=== PATIENT | male | born 1975 | race Caucasian/White ===

== ENCOUNTER 2018-06-14 23:18 | Emergency (ER) | payer MEDICAID ==
[~2018-06-14] VITALS: Ht 182.9 cm; Wt 98.4 kg
[2018-06-14 23:20] VITALS: BP 107/63
[2018-06-14] MEDS ORDERED: CYCLOBENZAPRINE 10 MG TAB PO ONE (23:35)
[2018-06-14] MEDS ORDERED: KETOROLAC 30 MG/ML VIAL IM ONE (23:35)
[2018-06-15 00:44] VITALS: BP 107/63
== END 2018-06-15 00:44 | disposition home or self-care (01) ==
LOC: MED 23:18
DX: M54.5 Low back pain (principal); M54.6 Pain in thoracic spine; M54.2 Cervicalgia; V44.5XXA Car driver injured in collision with heavy transport vehicle or bus in traffic accident, initial encounter; Y93.I9 Activity, other involving external motion; Y92.488 Other paved roadways as the place of occurrence of the external cause; Y99.8 Other external cause status; Z88.8 Allergy status to other drugs, medicaments and biological substances
CPT/HCPCS: 72072; 72110; 96372; 99284; J1885

== ENCOUNTER 2018-12-05 09:33 | Emergency (ER) | payer MEDICAID, OTHER ==
[~2018-12-05] VITALS: Ht 182.9 cm; Wt 99.8 kg
[2018-12-05 09:43] VITALS: BP 106/63
--- NOTE | 2018-12-05 09:48 | NUR ---
PATIENT AMBULATED TO BED #12
--- NOTE | 2018-12-05 10:11 | NUR ---
PT C/O PAIN 5/10 IN PENIS FOR ABOUT 6 WEEKS. BLOOD IN SEMEN CONTINUING TO INCREASE LAST 6 WEEKS. VS STABLE. NO S/S OF DISTRESS. SIDE RAIL UP. A&O X4. WILL CONTINUE TO MONITOR.
[2018-12-05 10:17] LABS: APPEARANCE,URINE CLEAR (CLEAR); BILIRUBIN,URINE NEGATIVE (NEGATIVE); BLOOD, URINE NEGATIVE (NEGATIVE); COLOR,URINE YELLOW (YELLOW); LEUKOCYTE ESTERASE ,URINE NEGATIVE (NEGATIVE); NITRITE, URINE NEGATIVE (NEGATIVE); UGLUCOSE NEGATIVE (NEGATIVE)
[2018-12-05 10:32] LABS: RBC,URINE 0-5 /HPF (0-5); WBC,URINE 0-5 /HPF (0-5)
[2018-12-05 13:06] VITALS: BP 109/61
--- NOTE | 2018-12-05 13:07 | NUR ---
Patient discharged with v/s stable. Written and verbal after care instructions given and explained. Patient verbalized understanding. Ambulatory with steady gait. All questions addressed prior to discharge. Advised to follow up with PMD.
[2018-12-07 06:36] LABS: CHLAMYDIA TRACHOMATIS AMP DNA Negative (Negative)
== END 2018-12-05 13:07 | disposition home or self-care (01) ==
LOC: MED 09:33
DX: R36.1 Hematospermia (principal); Z88.5 Allergy status to narcotic agent; Z85.47 Personal history of malignant neoplasm of testis
CPT/HCPCS: 36415; 76870; 81001; 87491; 99284; Q0092; 81002

== ENCOUNTER 2019-06-26 00:40 | Emergency (ER) | payer MEDICAID, OTHER ==
[~2019-06-26] VITALS: Ht 182.9 cm; Wt 97.1 kg
[2019-06-26 00:42] VITALS: BP 131/89
--- NOTE | 2019-06-26 00:45 | NUR ---
PT TAKEN TO BED 11
--- NOTE | 2019-06-26 00:53 | NUR ---
PT BIB SELF C/O ABD PAIN X6HRS. CONSTANT SHARP 10/10 PAIN TO ABD. ABD SOFT, ROUND, TENDER. PT STATES HE FEELS BLOATED. STATES NAUSEA & VOMITING. DENIES DIARRHEA AND FEVER. PT STATES CHILLS X6 HRS. LAST BM X2 DAYS AGO PER PT. RR EVEN AND UNLABORED. PT CALM AND PLEASANT IN BED. BED LOCKED AND IN LOW POSITION. VSS. MEDHX: TESTICULAR LYMPHOMA ALLERGIES: MORPHINE
--- NOTE | 2019-06-26 01:08 | NUR ---
PT AMBULATED TO RESTROOM WITH STEADY GAIT.
--- NOTE | 2019-06-26 01:13 | NUR ---
Dr. Berumen examining patient.
[2019-06-26] MEDS ORDERED: KETOROLAC 30 MG/ML VIAL IVP ONE (01:15)
[2019-06-26] MEDS ORDERED: ONDANSETRON 4 MG/2 ML VIAL IVP ONE (01:15)
[2019-06-26] MEDS ORDERED: NACL 0.9% 1,000 ML IV ONE (01:15)
--- NOTE | 2019-06-26 01:25 | NUR ---
LAB AT BEDSIDE.
[2019-06-26 01:32] LABS: EOSINOPHILS # (AUTO) 0.1 K/uL (0-0.4); LYMPHOCYTES # (AUTO) 1.1 K/uL (2.0-11.5); MONOCYTES # (AUTO) 0.9 K/uL (0.8-1.0); PLATELET COUNT (AUTO) 187 K/uL (140-450); RED CELL DISTRIBUTION WIDTH 13.3 % (11.6-13.7)
[2019-06-26 01:38] LABS: BASOPHILS % (AUTO) 0.1 % (0.0-2.0); EOSINOPHILS % (AUTO) 0.7 % (0.0-4.0); HEMATOCRIT 48.4 % (36-52); MEAN CORPUSCULAR HEMOGLOBIN 29 pg (27-31); MEAN CORPUSCULAR HGB CONC 33 g/dL (33-37); MEAN CORPUSCULAR VOLUME 88.3 fL (80-94); MONOCYTES % (AUTO) 5.6 % (1.7-9.3); NEUTROPHILS # (AUTO) 13.7 K/uL (1.8-7.7); NEUTROPHILS % (AUTO) 86.6 % (42.2-75.2); RED BLOOD CELL COUNT(AUTO) 5.48 MIL/uL (4.20-6.10); WHITE BLOOD COUNT (AUTO) 15.9 K/uL (4.8-10.8)
--- NOTE | 2019-06-26 01:48 | NUR ---
PT TO CT VIA WHEELCHAIR.
[2019-06-26 01:59] LABS: ANION GAP 13.6 (8-16); CARBON DIOXIDE 29.3 mmol/L (21-32); POTASSIUM 3.9 mmol/L (3.5-5.1); TOTAL BILIRUBIN 0.7 mg/dL (0.0-1.0)
[2019-06-26 02:00] LABS: ALBUMIN 4.4 g/dL (3.4-5.0)
--- NOTE | 2019-06-26 02:00 | NUR ---
PT RETURN FROM CT
--- NOTE | 2019-06-26 02:02 | NUR ---
PT STATES 8/10 SHARP ABD PAIN S/P TORADOL IV PUSH. DR SONI MADE AWARE. PT RESTING IN BED W/ BED LOCKED AND IN LOW POSITION. VSS. WILL CONTINUE TO MONITOR.
[2019-06-26] MEDS ORDERED: fentaNYL 0.05 MG/ML VIAL IVP ONE (02:05)
--- NOTE | 2019-06-26 02:19 | NUR ---
PT STATES RELIEF OF PAIN AFTER FENTANYL IV PUSH. 2/10 PAIN AT THIS TIME. BED LOCKED AND IN LOW POSITION, X1 SIDERAIL RAISED. VSS. WILL CONTINUE TO MONITOR.
--- NOTE | 2019-06-26 02:27 | NUR ---
PT O2 SAT 91% ON RA. PT PLACED ON 2L NC AT THIS TIME, O2 SAT 98%. VSS. WILL CONTINUE TO MONITOR.
[2019-06-26 03:52] VITALS: BP 122/76
--- NOTE | 2019-06-26 03:53 | NUR ---
Patient discharged with v/s stable. Written and verbal after care instructions given and explained. Patient alert, oriented and verbalized understanding of instructions. Ambulatory with . All questions addressed prior to discharge. ID band removed. Patient advised to follow up with PMD. Rx of ZOFRAN, NORCO, AND BENTYL given. Patient educated on indication of medication including possible reaction and side effects. Opportunity to ask questions provided and answered. PT STATES HE HAS A RIDE HOME.
== END 2019-06-26 03:53 | disposition home or self-care (01) ==
LOC: MED 00:40
DX: K56.0 Paralytic ileus (principal); R11.2 Nausea with vomiting, unspecified; Z88.5 Allergy status to narcotic agent; Z85.9 Personal history of malignant neoplasm, unspecified
CPT/HCPCS: 36415; 74176; 80053; 83690; 85025; 96361; 96374; 96375; 99284; J1885; J2405; J3010; J7030

== ENCOUNTER 2023-10-13 12:32 | Emergency (ER) | payer MEDICAID, OTHER ==
[~2023-10-13] VITALS: Ht 182.9 cm; Wt 104.3 kg
[2023-10-13 13:09] VITALS: BP 132/83; PULSE 62; RESP 16; TEMP 97.5; O2SAT 97
[2023-10-13 13:28] LABS: BASOPHILS % (AUTO) 0.3 % (0.0-2.0); EOSINOPHILS % (AUTO) 0.3 % (0.0-4.0); LYMPHOCYTES # (AUTO) 0.9 K/uL (2.0-11.5); LYMPHOCYTES % (AUTO) 10.2 % (20.5-51.1); MEAN CORPUSCULAR HEMOGLOBIN 30 pg (27-31); MEAN CORPUSCULAR HGB CONC 34 g/dL (33-37); MEAN CORPUSCULAR VOLUME 87.9 fL (80-94); MONOCYTES # (AUTO) 0.8 K/uL (0.8-1.0); MONOCYTES % (AUTO) 8.6 % (1.7-9.3); NEUTROPHILS # (AUTO) 7.1 K/uL (1.8-7.7); NEUTROPHILS % (AUTO) 80.6 % (42.2-75.2); PLATELET COUNT (AUTO) 175 K/uL (140-450); RED BLOOD CELL COUNT(AUTO) 4.66 MIL/uL (4.20-6.10); RED CELL DISTRIBUTION WIDTH 13.5 % (11.6-13.7); WHITE BLOOD COUNT (AUTO) 8.8 K/uL (4.8-10.8)
[2023-10-13 13:36] LABS: ANION GAP 9.3 (8-16); CALCIUM 8.3 mg/dL (8.5-10.1); CARBON DIOXIDE 29.4 mmol/L (21-32); CREATININE 0.9 mg/dL (0.6-1.3); POTASSIUM 3.7 mmol/L (3.5-5.1)
[2023-10-13 13:42] LABS: ALBUMIN 3.5 g/dL (3.4-5.0); BILIRUBIN,DIRECT 0.1 mg/dL (0.0-0.3); TOTAL BILIRUBIN 0.5 mg/dL (0.0-1.0); TOTAL PROTEIN, SERUM 7.8 g/dL (6.4-8.2)
[2023-10-13 14:40] VITALS: RESP 12
[2023-10-13] MEDS: ONDANSETRON 4 MG/2 ML VIAL IVP ONE (14:45)
[2023-10-13] MEDS: KETOROLAC 30 MG/ML VIAL IVP ONE (14:49)
[2023-10-13] MEDS: ACETAMINOPHEN EXTRA STRENGTH 500 MG TAB PO ONE (14:51)
[2023-10-13] MEDS ORDERED: ONDA-188 SL (15:52)
[2023-10-13] MEDS ORDERED: MIRABULK PO (15:53)
[2023-10-13 16:17] VITALS: BP 111/72; PULSE 64; TEMP 98.2; O2SAT 98
== END 2023-10-13 16:17 | disposition home or self-care (01) ==
LOC: MED 12:32
DX: K59.00 Constipation, unspecified (principal); R11.2 Nausea with vomiting, unspecified; R10.84 Generalized abdominal pain; Z79.899 Other long term (current) drug therapy; Z88.5 Allergy status to narcotic agent
CPT/HCPCS: 36415; 74176; 76705; 80048; 80076; 83605; 83690; 85025; 96374; 96375; 99285; J1885; J2405; Q0092

== ENCOUNTER 2023-12-27 03:40 | Emergency (ER) | payer OTHER ==
[~2023-12-27] VITALS: Ht 182.9 cm; Wt 110.2 kg
[~2023-12-27 03:40] MED LIST: MIRABULK PO; ONDA-188 SL
[2023-12-27 03:58] VITALS: BP 140/78; PULSE 82; RESP 20; TEMP 97.6; O2SAT 97
[2023-12-27] MEDS: IBUPROFEN 600 MG TAB PO ONE (04:41)
[2023-12-27] MEDS ORDERED: CEPH-588 PO (04:42)
[2023-12-27 04:51] VITALS: BP 140/78; PULSE 82; RESP 20; TEMP 97.6; O2SAT 97
== END 2023-12-27 04:52 | disposition home or self-care (01) ==
LOC: MED 03:40
DX: L03.112 Cellulitis of left axilla (principal); Z85.47 Personal history of malignant neoplasm of testis; Z79.899 Other long term (current) drug therapy; Z88.5 Allergy status to narcotic agent
CPT/HCPCS: 99284